=== PATIENT | male | born 1955 | race Caucasian/White ===

== ENCOUNTER 2016-05-13 06:22 | Day surgery (SDC) ==
[2016-05-13] MEDS ORDERED: NS 1,000 ML ONE (07:23)
[2016-05-13 08:22] LABS: MANUAL DIFF NEEDED? NO
[2016-05-13 08:27] LABS: BASO% 0.5 % (0.0-0.8); EOS# 0.71 X1000 (0.0-0.7); EOS% 8.3 % (0.0-10.0); HEMATOCRIT 45.3 % (42.0-52.0); HEMOGLOBIN 15.9 g/dL (14.0-18.0); LYMPH# 0.94 X1000 (1.2-3.4); MCH 33.1 PG (27-31); MCHC 35.1 g/dL (33-37); MCV 94.2 FL (81-99); MONO# 0.89 X1000 (0.11-0.59); MONO% 10.4 % (1.7-9.3); MPV 9.6 FL (7.4-10.4); NEUT% 69.8 % (42.2-75.2); PLT 209 X1000 (130-400); RBC 4.81 XMIL (4.7-6.1)
[2016-05-13 08:51] LABS: AGAP 11; BUN 13 mg/dL (8-22); CALCIUM 9.2 mg/dL (8.8-10.2); CHLORIDE 102 mmol/L (98-107); COSMO 280; SODIUM 140 mmol/L (136-145); TCO2 27 mmol/L (25-35)
--- NOTE | 2016-05-13 08:54 | Diag Imaging Result Document ---
PROCEDURE NAME: CHEST-2 VIEWS - 05/13/2016 CHEST X-RAY, 2 VIEWS: COMPARISON: None. INDICATION: Chest pain. FINDINGS: There are some trace increased markings in the peripheral lung bases, nonspecific. Heart size is top normal. Pulmonary vascularity is normal. No pneumothorax or pleural effusion. IMPRESSION: Slight increased markings in the lung bases which may suggest mild fibrosis or edema.
[2016-05-13] MEDS ORDERED: DIPRIVAN 1% ONE (09:54)
--- NOTE | 2016-05-13 09:59 | OPERATIVE NOTE ---
PROCEDURE DATE: 05/13/2016 DATE OF PROCEDURE: 05/13/2016. PROCEDURE: Elective cardioversion. DESCRIPTION OF PROCEDURE IN DETAIL: The patient was brought to the cardiac catheterization laboratory for elective cardioversion. Informed consent was obtained from the patient. Intravenous access was established. The patient was brought to the cardiac catheterization laboratory. After informed consent was obtained, patient was anesthetized using propofol. Please see detailed anesthesia records. The patient was cardioverted to sinus rhythm. Single shock of synchronized 100 joules. There were no complications. Patient was in sinus rhythm.
--- NOTE | 2016-05-13 10:13 | EKG Report ---
Test Performed on : 05/13/2016 07:13:32 AM Test Reason : per MD order Blood Pressure : / mmHG Vent. Rate : 083 BPM Atrial Rate : 300 BPM P-R Int : 000 ms QRS Dur : 058 ms QT Int : 336 ms P-R-T Axes : 000 -48 -17 degrees QTc Int : 394 ms Atrial fibrillation. with a competing junctional pacemaker. Left axis deviation Abnormal ECG When compared with ECG of 02-APR-2016 11:34, No significant change was found Confirmed by Johnny MIRANDA, Troy Briggs ([id number]) on 05/13/2016 5:18:45 PM
[2016-05-13 12:32] VITALS: BP 138/96
--- NOTE | 2016-05-13 14:06 | EKG Report ---
Test Performed on : 05/13/2016 11:00:36 AM Test Reason : Cardioversion Blood Pressure : / mmHG Vent. Rate : 070 BPM Atrial Rate : 070 BPM P-R Int : 214 ms QRS Dur : 064 ms QT Int : 412 ms P-R-T Axes : 068 -48 002 degrees QTc Int : 444 ms Sinus rhythm. with 1st degree AV block. Possible Left atrial enlargement Left axis deviation Cannot rule out Inferior infarct , age undetermined Abnormal ECG When compared with ECG of 13-MAY-2016 07:13, (Unconfirmed) Sinus rhythm. has replaced Atrial fibrillation. Confirmed by Johnny MIRANDA, Troy Briggs ([id number]) on 05/13/2016 5:19:15 PM
== END 2016-05-13 12:20 | disposition home or self-care (01) ==
LOC: CATH 06:22
PROVIDERS: ATTEND Internal Medicine Cardiovascular Disease
DX: I48.91 Unspecified atrial fibrillation (principal); I34.0 Nonrheumatic mitral (valve) insufficiency; Z79.01 Long term (current) use of anticoagulants; I11.0 Hypertensive heart disease with heart failure; I50.30 Unspecified diastolic (congestive) heart failure; E78.5 Hyperlipidemia, unspecified; Z87.891 Personal history of nicotine dependence; Z72.89 Other problems related to lifestyle; J45.909 Unspecified asthma, uncomplicated; M19.90 Unspecified osteoarthritis, unspecified site; Z87.442 Personal history of urinary calculi; Z79.82 Long term (current) use of aspirin; Z79.899 Other long term (current) drug therapy; Z79.51 Long term (current) use of inhaled steroids
CPT/HCPCS: 71020; 80048; 85025; 93005; 93010; J7030